=== PATIENT | male | born 1985 | race Two or more races ===

== ENCOUNTER 2016-12-22 21:58 | Emergency (ER) | payer MEDICAID ==
[~2016-12-22] VITALS: Ht 182.9 cm; Wt 102.1 kg
--- NOTE | 2016-12-22 23:30 | NUR ---
Received pt from triage accompanied by family member. Seen MD for evaluation.
[2016-12-22] MEDS ORDERED: KETOROLAC TROMETHAMINE 30 MG INJ IM ONE (23:45)
--- NOTE | 2016-12-22 23:45 | NUR ---
Toradol 30mg/IM given as ordered. Pain 10/10 lumbar area down to rt foot, pain started months ago and not taking pain medicine, had pain meds but did not worked.Did not remember for pain meds in the past.
[2016-12-22] MEDS ORDERED: KETOROLAC TROMETHAMINE 30 MG INJ ONE (23:50)
--- NOTE | 2016-12-23 00:10 | NUR ---
Reassessed pain 10/16. Asleep intermittently appears comfortable.
--- NOTE | 2016-12-23 00:42 | NUR ---
Patient discharged to home in stable conditon. Written and verbal after care instructions given. Patient verbalizes understanding of instructions. Ambulated from ER with stable gait. Will be driven home in private vehicle by family. All belonging with patient.
[2016-12-23 00:44] VITALS: BP 128/78
== END 2016-12-23 00:44 | disposition home or self-care (01) ==
LOC: ER 22:02
DX: M54.17 Radiculopathy, lumbosacral region (principal); M79.604 Pain in right leg
CPT/HCPCS: 72100; A4663; J1885